=== PATIENT | male | born 1970 | race Caucasian/White ===

== ENCOUNTER → 2025-04-06 13:50 | Outpatient (REF) | payer OTHER, SELFPAY | LOC: HWRCS 13:50 | PROVIDERS: ATTENDING PHYSICIAN Internal Medicine Interventional Cardiology; FAMILY PHYSICIAN Family Medicine | DX: I10 Essential (primary) hypertension (principal); I24.0 Acute coronary thrombosis not resulting in myocardial infarction; I25.9 Chronic ischemic heart disease, unspecified; Z95.5 Presence of coronary angioplasty implant and graft; E78.5 Hyperlipidemia, unspecified; R07.89 Other chest pain; R06.09 Other forms of dyspnea; F10.10 Alcohol abuse, uncomplicated | CPT/HCPCS: 93306 ==